=== PATIENT | male | born 1985 | race African-American/Black ===

== ENCOUNTER 2017-11-19 23:04 | Emergency (ER) | payer MEDICAID ==
[~2017-11-19] VITALS: Ht 188 cm; Wt 63.5 kg
[2017-11-19 23:38] LABS: Urine Bacteria NONE SEEN /hpf (None Seen); Urine Blood Negative /uL (Negative); Urine Hyaline Cast FEW /lpf (0 - 2); Urine Mucus FEW (None Seen); Urine Specific Gravity 1.029 (1.001-1.035); Urine WBC 12 /hpf (0 - 3)
[2017-11-19 23:41] LABS: Basophils # (auto) 0 uL; Basophils % (auto) 0.5 % (0.0-2.0); Eosinophils # (auto) 0.1 uL; Eosinophils % (auto) 2.6 % (0.0-7.0); Hematocrit 45.9 % (41.0-53.0); Hemoglobin 15.2 g/dL (13.5-17.5); Lymphocytes # (auto) 2.3 uL; Lymphocytes % (auto) 54.6 % (10.0-50.0); Mean Corpuscular Hgb Conc. 33.1 g/dL (32.0-36.0); Mean Corpuscular Volume 87.6 fL (80.0-100.0); Monocytes # (auto) 0.4 uL; Monocytes % (auto) 9.7 % (0.0-12.0); Neutrophils # (auto) 1.4 uL; Neutrophils % (auto) 32.6 % (37.0-80.0); Nucleated Red Blood Cells % 0.1 %; Platelet Count (auto) 149 10^3/uL (140-450); Red Blood Cells 5.24 10^6/uL (4.5-5.90); Red Cell Distribution Width 14.3 % (11.8-14.3); White Blood Cell 4.2 10^3/uL (4.4-10.8)
[2017-11-19 23:53] LABS: Amphetamine Screen, Urine NEGATIVE (NEGATIVE); Barbiturate Scree,Urine NEGATIVE (NEGATIVE); Benzodiazephine Screen, Urine NEGATIVE (NEGATIVE); Cannabinoid Screen, Urine POSITIVE (NEGATIVE); Cocaine Screen, Urine NEGATIVE (NEGATIVE); Opiate Scree,Urine NEGATIVE (NEGATIVE); Phencyclidine Screen, Urine NEGATIVE (NEGATIVE)
[2017-11-19 23:54] LABS: Albumin 4.2 g/dL (3.4-5.0); BUN/Creatinine Ratio 6.5; Calcium 8.8 mg/dL (8.5-10.1); Potassium 3.8 mmol/L (3.5-5.1)
[2017-11-19 23:57] LABS: Bilirubin, Total 0.3 mg/dL (0.2-1.0); Total Protein 8.2 g/dL (6.4-8.2)
[2017-11-20 00:16] LABS: Acetaminophen < 2.0 ug/mL (10-30)
[2017-11-20] MEDS ORDERED: LORazepam 0.5 MG TAB PO ONE (01:00)
[2017-11-20 03:36] VITALS: BP 112/74
== END 2017-11-20 05:29 | disposition left against medical advice (07) ==
LOC: ER 23:17
DX: F23 Brief psychotic disorder (principal); F19.10 Other psychoactive substance abuse, uncomplicated; R45.851 Suicidal ideations; F32.9 Major depressive disorder, single episode, unspecified; F41.9 Anxiety disorder, unspecified
CPT/HCPCS: 36415; 80053; 80307; 80329; 81001; 85025

== ENCOUNTER 2024-08-28 22:55 | Emergency (ER) | payer MEDICAID, OTHER ==
[~2024-08-28] VITALS: Ht 188 cm; Wt 77.1 kg
[2024-08-28 23:10] VITALS: BP 147/84; PULSE 86; RESP 18; TEMP 98.2; O2SAT 99
[2024-08-28] MEDS ORDERED: SODIUM CHLORIDE 0.9% 1,000 ML IV ONE (23:15)
[2024-08-28] MEDS ORDERED: THIAMINE 100mg/ml INJ (200mg/2ml VIAL) IV ONE (23:15)
[2024-08-28] MEDS ORDERED: ONDANSETRON HCL 4 MG/2 ML VIAL IV ONE (23:15)
--- NOTE | 2024-08-29 00:37 | ED.PDOC ---
History of Present Illness HPI Comments This patient is a 38-year-old male who arrives the ED today for assistance with ETOH withdrawal concerns. Patient states he has not had alcohol in the past few days, but is experiencing withdrawal syndromes. Chief Complaint: Withdrawal Time Seen by MD: 23:04 Reviewed Notes: Nurses Notes Information Source: Patient Mode of Arrival: Ambulatory Severity: Moderate Timing: Days Duration: Since onset Prehospital treatment: None Past Medical History PAST MEDICAL HISTORY: Denies Surgical History: Denies all surgeries Family History Family History: Reviewed,noncontributory to illness, No family hx of Cancer, No family hx of DM, No family hx of Heart alka, No family hx of HTN, No family hx ofKidney alka, No family hx of Liver alka, No family hx of Lung alka, No family hx of Stroke Social History Smoker: Non-Smoker Alcohol: Heavy Drugs: Denies Drug Use Lives In: Home Constitutional: reports: chills, diaphoresis, weakness; denies: fatigue, fever, malaise, sweats, others EENTM: denies: blurred vision, double vision, ear bleeding, ear discharge, ear drainage, ear pain, ear ringing, eye pain, eye redness, hearing loss, mouth pain, mouth swelling, nasal discharge, nose bleeding, nose congestion, nose pain, photophobia, tearing, throat pain, throat swelling, voice changes, others Respiratory: denies: cough, hemoptysis, orthopnea, SOB at rest, shortness of breath, SOB with excertion, stridor, wheezing, others Cardiovascular: denies: chest pain, dizzy spells, diaphoresis, Dyspnea on exertion, edema, irregular heart beat, left arm pain, lightheadedness, palpit ations, PND, syncope, others Gastrointestinal: reports: nausea; denies: abdomen distended, abdominal pain, blood streaked bowels, constipated, diarrhea, dysphagia, difficulty swallowing, hematemesis, melena, poor appetite, poor fluid intake, rectal bleeding, rectal pain, vomiting, others Genitourinary: denies: burning, dysuria, flank pain, frequency, hematuria, incontinence, penile discharge, penile sore, pain, testicle pain, testicle swelling, urgency, others Neurological: denies: dizziness, fainting, headache, left sided numbness, left sided weakness, numbness, paresthesia, pre-existing deficit, right sided numbness, right sided weakness, seizure, speech problems, tingling, tremors, weakness, others Musculoskeletal: denies: back pain, gout, joint pain, joint swelling, muscle pain, muscle stiffness, neck pain, others Integumetry: denies: bruises, change in color, change in hair/nails, dryness, laceration, lesions, lumps, rash, wounds, others Allergic/Immunocompromised: denies: Difficulty Healing, Frequent Infections, Hives, Itching, others Hematologic/Lymphatic: denies: anemia, blood clots, easy bleeding, easy bruising, swollen glands, others Endocrine: denies: excessive hunger, excessive sweating, excessive thirst, excessive urination, flushing, intolerance to cold, intolerance to heat, unexplained weight gain, unexplained weight loss, others Psychiatric: denies: anxiety, bipolar disorder, depression, hopeless, panic di sorder, schizophrenia, sleepless, suicidal, others Physical Exam General Appearance: Moderate Distress (Mild stress due to alcohol withdrawal concerns.), Normal HEENT: Normal ENT Inspection, Pharynx Normal, TMs Normal Neck: Full Range of Motion, Non-Tender, Normal, Normal Inspection Respiratory: Chest Non-Tender, Lungs Clear, No Accessory Muscle Use, No Respiratory Distress, Normal Breath Sounds Cardiovascular: No Edema, No JVD, No Murmur, No Gallop, Normal Peripheral Pulses, Regular Rate/Rhythm Breast Exam: Deferred Gastrointestinal: No Organomegaly, Non Tender, No Pulsatile Mass, Normal Bowel Sounds, Soft Genitalia: Deferred Pelvic: Deferred Rectal: Deferred Extremities: No calf tenderness, Normal capillary refill, Normal inspection, Normal range of motion, Non-tender, No pedal edema Neurologic: Alert, No Motor Deficits, Normal Affect, Normal Mood, No Sensory De ficits Cerebellar Function: Normal Reflexes: Normal Skin: Dry, Normal Color, Warm Lymphatic: No Adenopathy Was a procedure done? Was a procedure done?: No Differential Dx Considerations may include: ETOH withdrawal X-Ray, Labs, Meds, VS Lab Test 08/28/24 23:14 Range/Units Plasma/Serum Blood Alcohol < 3.0 <10 mg/dL X-Ray, Labs, Meds, VS Comment All studies performed the ED were evaluated by me personally. Alcohol evaluation was unremarkable. Nursing attempted to locate the patient for treatment, but it appears the patient has a eloped from the facility. Time of 1ST Reevaluation: 00:36 Reevaluation 1ST: Unchanged Consultation: PCP Patient Education/Counseling: Diagnosis, Treatment Family Education/Counseling: Diagnosis, Treatment Departure 1 Departure Time of Disposition: 00:37 Impression: Primary Impression: Alcohol withdrawal Disposition: LEFT AWOL/ELOPED Condition: Fair Discharged With: Self Critical Care Note Critical Care Time?: No Stability Stability form required: No Heart Score Heart Score: Heart Score Response (Comments) Value History N/A 0 EKG N/A 0 Age N/A 0 Risk Factors N/A 0 Troponin N/A 0 Total 0 DAREN GARRIDO PAC August 29, 2024 00:37
[2024-08-29] MEDS ORDERED: ZOFR4T PO (07:52)
[2024-08-29] MEDS ORDERED: CHL25C PO (07:52)
== END 2024-08-29 01:04 | disposition left against medical advice (07) ==
LOC: ER 23:00 → MERGE 23:00 → ER 08-29 01:04
DX: F10.939 Alcohol use, unspecified with withdrawal, unspecified (principal); Y90.9 Presence of alcohol in blood, level not specified
CPT/HCPCS: 36415; 80320

== ENCOUNTER 2024-08-29 06:02 | Emergency (ER) | payer MEDICAID ==
[~2024-08-29] VITALS: Ht 188 cm; Wt 70.6 kg
--- NOTE | 2024-08-29 07:19 | ED.PDOC ---
Psychiatric HPI Comments 38-year-old male presents to the ER with no prior history associated to the chief complaint of ETOH. Patient reports on drinking 1 pint a day of alcohol for "few years", and is " looking for a change". Patient states symptoms of N/V and cold sweats. Patient notes his last drink was on 08/26/24, as well as being homeless and needs resources. Social history of tobacco, alcohol use, but denies substance use. Denies chills, fever, /D, SOB, CP. No other associated symptoms, modifiers, recent injuries or sick contacts present at this time. Chief Complaint: Withdrawal Time Seen by MD: 06:45 Reviewed Notes: Nurses Notes, Medications, Allergies Information Source: Patient Mode of Arrival: Ambulatory Severity: Able to Care for Self Severity of Pain: Moderate Severity of Mental Status: None Severity of Symptoms: Moderate Timing: Days Duration: Since onset, Days Prehospital treatment: None Presents with: Other (Withdrawal) Ingestion: None Circumstance: Withdrawal Symptoms Current substance abuse: None Stressors: Homeless History of: ETOH Withdrawl Quality: None Location: None Location of pain or injury: None Associated signs and symptoms: ETOH (Withdrawal symptoms), Nausea, Vomiting, Other (Cold Sweats) Past Medical History PAST MEDICAL HISTORY: Denies Surgical History: Denies all surgeries Family History Family History: Reviewed,noncontributory to illness, Unknown Social History Smoker: Cigarettes Alcohol: Heavy (One Pint a day) Drugs: Denies Drug Use Lives In: Homeless Constitutional: reports: others (Alcohol withdrawal); denies: chills, diaphoresis, fatigue, fever, malaise, sweats, weakness EENTM: denies: blurred vision, double vision, ear bleeding, ear discharge, ear drainage, ear pain, ear ringing, eye pain, eye redness, hearing loss, mouth pain, mouth swelling, nasal discharge, nose bleeding, nose congestion, nose pain, photophobia, tearing, throat pain, throat swelling, voice changes, others Respiratory: denies: cough, hemoptysis, orthopnea, SOB at rest, shortness of breath, SOB with excertion, stridor, wheezing, others Cardiovascular: denies: chest pain, dizzy spells, diaphoresis, Dyspnea on exertion, edema, irregular heart beat, left arm pain, lightheadedness, palpitations, PND, syncope, others Gastrointestinal: reports: nausea, vomiting; denies: abdomen distended, abdominal pain, blood streaked bowels, constipated, diarrhea, dysphagia, difficulty swallowing, hematemesis, melena, poor appetite, poor fluid intake, rectal bleeding, rectal pain, others Genitourinary: denies: burning, dysuria, flank pain, frequency, hematuria, incontinence, penile discharge, penile sore, pain, testicle pain, testicle swelling, urgency, others Neurological: denies: dizziness, fainting, headache, left sided numbness, left sided weakness, numbness, paresthesia, pre-existing deficit, right sided numbness, right sided weakness, seizure, speech problems, tingling, tremors, weakness, others Musculoskeletal: denies: back pain, gout, joint pain, joint swelling, muscle pa in, muscle stiffness, neck pain, others Integumetry: denies: bruises, change in color, change in hair/nails, dryness, laceration, lesions, lumps, rash, wounds, others Allergic/Immunocompromised: denies: Difficulty Healing, Frequent Infections, Hives, Itching, others Hematologic/Lymphatic: denies: anemia, blood clots, easy bleeding, easy bruising, swollen glands, others Endocrine: denies: excessive hunger, excessive sweating, excessive thirst, excessive urination, flushing, intolerance to cold, intolerance to heat, unexplained weight gain, unexplained weight loss, others Psychiatric: denies: anxiety, bipolar disorder, depression, hopeless, panic disorder, schizophrenia, sleepless, suicidal, others All Other Systems: Reviewed and Negative Physical Exam Exam Comments No tremors noted General Appearance: No Apparent Distress, Normal HEENT: Normal ENT Inspection, Pharynx Normal, TMs Normal Neck: Full Range of Motion, Non-Tender, Normal, Normal Inspection Respiratory: Chest Non-Tender, Lungs Clear, No Accessory Muscle Use, No Respiratory Distress, Normal Breath Sounds Cardiovascular: No Edema, No JVD, No Murmur, No Gallop, Normal Peripheral Pulses, Regular Rate/Rhythm Breast Exam: Deferred Gastrointestinal: No Organomegaly, Non Tender, No Pulsatile Mass, Normal Bowel Sounds, Soft Genitalia: Deferred Pelvic: Deferred Rectal: Deferred Extremities: No calf tenderness, Normal capillary refill, Normal inspection, Normal range of motion, Non-tender, No pedal edema Musculoskeletal : Apperance: Normal Neurologic: Alert, 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 Was a procedure done?: No Psych Differential Dx Psych. Differential Dx: N/A OD Differential Dx: Alcohol Abuse (One Pint a Day) Suicidal Differential Dx: Alcohol Abuse (But currently has withdrawal symptoms) Intoxication Differential Dx: Alcohol Withdraw Syndrome X-Ray, Labs, Meds, VS Vital Signs Date Time Temp Pulse Resp B/P (MAP) Pulse Ox O2 Delivery O2 Flow Rate FiO2 08/29/24 07:34 89 16 98 Room Air* 0 21 08/29/24 07:31 97.5 83 17 130/82 (98) 98 97.5 08/29/24 06:33 97.8 75 16 128/80 (96) 98 97.8 Lab Test 08/29/24 06:43 Range/Units POC Glucose 73 70-106 mg/dl 38-year-old male presents here with alcohol withdrawal. Last drink was proximally 3 days ago. At this time he reports some nausea. However is generally well-appearing. CIWA score is 6. He states he no longer wants to do this. At this time I have given her a prescription for Librium to be taken every 6 hours as needed. I have given him Zofran in the ER and also sent him a prescription for Zofran. Advised him that he can not mix both meds together as that can be deadly. Patient agreeable. Advised him however if his alcohol withdrawal symptoms worsen despite taking Librium to please return to the emergency room as alcohol withdrawal can be lethal. Patient agreeable and understands. Time of 1ST Reevaluation: 07:15 Reevaluation 1ST: Unchanged Patient Education/Counseling: Diagnosis, Treatment, Prognosis Family Education/Counseling: No Family Present Departure 1 Departure Time of Disposition: 07:18 Impression: Primary Impression: Alcohol withdrawal Qualified Codes: F10.930 - Alcohol use, unspecified with withdrawal, uncomplicated Disposition: 01 HOME / SELF CARE / HOMELESS Condition: Stable e-Prescriptions Ondansetron Odt 4MG Tab (ZOFRAN PO) 4 Mg Tb 4 MG PO Q6HPRN PRN for 10 Days, #15 TAB ODT TAB-DISSOLVE IN MOUTH, THEN SWALLOW Prov: FENSTER,AAKANKSHA M MD 08/29/24 Chlordiazepoxide Hcl (Librium) 25 Mg Cp 25 MG PO Q6HP PRN for 5 Days, #20 CAP Prov: YANETH MAHONEY MD 08/29/24 Critical Care Note Critical Care Time?: No Stability Stability form required: No Heart Score Heart Score: Heart Score Response (Comments) Value History N/A 0 EKG N/A 0 Age N/A 0 Risk Factors N/A 0 Troponin N/A 0 Total 0 I personally scribed for YANETH MAHONEY MD ([email or web address]) on 08/29/24 at 07:19. Electronically submitted by Spike Crowley ([email or web address]). YANETH MAHONEY MD August 29, 2024 07:19
[2024-08-29 07:31] VITALS: BP 130/82; TEMP 97.5
[2024-08-29 07:34] VITALS: PULSE 89; RESP 16; O2SAT 98
[2024-08-29] MEDS ORDERED: CHL25C PO (07:52)
[2024-08-29] MEDS ORDERED: ZOFR4T PO (07:52)
[2024-08-29] MEDS: LORazepam 0.5 MG TAB PO ONE (08:05)
[2024-08-29] MEDS: ONDANSETRON ODT 4 MG TAB PO ONE (08:05)
== END 2024-08-29 08:05 | disposition home or self-care (01) ==
LOC: MERGE 06:02 → ER 06:02
DX: F10.239 Alcohol dependence with withdrawal, unspecified (principal); F17.210 Nicotine dependence, cigarettes, uncomplicated; Z59.00 Homelessness unspecified; Y90.9 Presence of alcohol in blood, level not specified
CPT/HCPCS: 82947; 82962